=== PATIENT | female | born 1950 | race Hispanic/Latino ===

== ENCOUNTER → 2017-07-27 | Outpatient (CLI) | payer OTHER ==
[~2017-07-27] MED LIST: ATOR20TA65 PO; CALC-1038 PO; CHOL100040 PO; CYAN250014 PO; IRON PO; LOSA25TA21 PO; MAGN250T2 PO; METF500T6 PO; MULT-40 PO
== END | disposition home or self-care (01) ==
LOC: RAH 09:21
PROVIDERS: ATTEND Family Medicine
DX: Z12.31 Encounter for screening mammogram for malignant neoplasm of breast (principal)
CPT/HCPCS: 77067

== ENCOUNTER 2017-08-19 06:03 | Day surgery (SDC) | payer OTHER ==
[~2017-08-19] VITALS: Ht 160 cm; Wt 60.7 kg
[~2017-08-19 06:03] MED LIST changes: -CHOL100040 PO; -CYAN250014 PO
[2017-08-19] MEDS ORDERED: SODIUM CHLORIDE 0.9% 1000ML 1,000 ML IV ONE (06:30)
[2017-08-19 06:53] VITALS: BP 153/77
[2017-08-19] MEDS ORDERED: CYAN250014 PO (07:06)
[2017-08-19] MEDS ORDERED: CHOL100040 PO (07:06)
[2017-08-19] MEDS ORDERED: PROPOFOL 10 MG/ML 20ML VIAL IV ONE ×2 (07:28→07:50)
[2017-08-19] MEDS ORDERED: FENTANYL CITRATE PF 50 MCG/1 ML 2ML VIAL ONE (07:29)
[2017-08-19] MEDS ORDERED: GLYCOPYRROLATE 0.2 MG/ML 5 ML VIAL ONE (07:30)
[2017-08-19 08:09] VITALS: BP 93/48
== END 2017-08-19 08:40 ==
LOC: DAH 06:03 → ENDO 06:03
PROVIDERS: ATTEND Internal Medicine Gastroenterology
DX: D12.5 Benign neoplasm of sigmoid colon (principal); D50.9 Iron deficiency anemia, unspecified; B96.81 Helicobacter pylori [H. pylori] as the cause of diseases classified elsewhere; I10 Essential (primary) hypertension; K29.50 Unspecified chronic gastritis without bleeding; E11.9 Type 2 diabetes mellitus without complications; Z79.84 Long term (current) use of oral hypoglycemic drugs; Z79.899 Other long term (current) drug therapy
CPT/HCPCS: 43239; 45380; 82948 ×2; 88305; 93005; A4606; J2704 ×2; J3010; J3490; J7030